=== PATIENT | male | born 1970 | race Caucasian/White ===

== ENCOUNTER 2019-02-17 17:55 | Emergency (ER) | payer OTHER ==
[2019-02-17 18:11] VITALS: BP 149/89; PULSE 93; RESP 18; TEMP 98.3
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
== END 2019-02-17 19:03 | disposition home or self-care (01) ==
LOC: EC 17:55
DX: Z76.0 Encounter for issue of repeat prescription (principal); F41.9 Anxiety disorder, unspecified; F32.9 Major depressive disorder, single episode, unspecified; F17.200 Nicotine dependence, unspecified, uncomplicated; Z79.891 Long term (current) use of opiate analgesic; Z79.899 Other long term (current) drug therapy; Z88.0 Allergy status to penicillin
CPT/HCPCS: 82075; 99284